=== PATIENT | female | born 1995 | race Caucasian/White ===

== ENCOUNTER 2017-12-29 20:52 | Emergency (ER) | payer BC ==
--- NOTE | 2017-12-29 21:40 | EDPHY ---
H & P Time Seen by Provider: 12/29/17 21:16 HPI/ROS: CHIEF COMPLAINT: Dysuria, hematuria HISTORY OF PRESENT ILLNESS: Patient is a 22-year-old female presents emergency department with dysuria and hematuria. Her symptoms started at 5:30 p.m.. She describes significant discomfort while urinating. She has no flank pain. No fevers or chills. No nausea or vomiting. No abdominal pain. Patient states that she is not sexually active with men and denies . Last period was 4 days ago. REVIEW OF SYSTEMS: 10 systems were reveiwed and are negative with the exception of the elements mentioned in the history of present illness. Past Medical/Surgical History: Mononucleosis, whooping cough Smoking Status: Never smoked Physical Exam: Vitals noted. Tachycardic 103 GENERAL: Well-appearing, in no acute distress, alert. HEENT: Eyes normal to inspection, normal pharynx, no signs of dehydration. NECK: Normal, supple. RESPIRATORY: Clear to auscultation bilaterally, no rales, rhonchi or wheezing. CVS: Regular rate and rhythm, no rubs, murmurs, or gallops. ABDOMEN: Soft, nontender, nondistended, no organomegaly. Benign BACK: Normal to inspection, no CVA tenderness. SKIN: Normal color, no rash, warm, dry. No pallor. EXTREMITIES: No pedal edema, no joint swelling. NEURO/PSYCH: Alert and oriented, normal mood and affect Constitutional: Initial Vital Signs Temperature (C) 36.7 C 12/29/17 20:57 Heart Rate 103 H 12/29/17 20:57 Respiratory Rate 16 12/29/17 20:57 Blood Pressure 115/64 12/29/17 20:57 O2 Sat (%) 97 12/29/17 20:57 O2 Delivery Mode Room Air Allergies/Adverse Reactions: No Known Allergies Allergy (Unverified 04/26/15 16:58) Home Medications: Medication Instructions Recorded Cephalexin [Keflex (*)] 500 mg PO QID 5 Days cap 12/29/17 Phenazopyridine HCl [Pyridium] 100 mg PO TID #6 tab 12/29/17 Medical Decision Making ED Course/Re-evaluation: In the emergency department I discussed possible etiologies with the patient. I answered all her questions. Urine studies were ordered. Patient's UA was positive. Patient was given Keflex and Pyridium in the emergency department. She is given prescriptions for both Keflex and Pyridium. She is given a take-home pack of hydrocodone for her discomfort. She is given warnings prior to leaving. She will return with worsening symptoms. Differential Diagnosis: My differential includes but is not limited to urinary tract infection, pyelonephritis, cystitis, bacteremia, sepsis, STD - Data Points Laboratory Results: 12/29/17 21:09 Urine Color YELLOW Urine Appearance HAZY Urine pH 6.0 (5.0-7.5) Ur Specific Almond 1.003 (1.002-1.030) Urine Protein 1+ H (NEGATIVE) Urine Ketones NEGATIVE (NEGATIVE) Urine Blood 3+ H (NEGATIVE) Urine Nitrate NEGATIVE (NEGATIVE) Urine Bilirubin NEGATIVE (NEGATIVE) Urine Urobilinogen NEGATIVE EU EU (0.2-1.0) Ur Leukocyte Esterase 2+ H (NEGATIVE) Urine RBC 5-10 /hpf H /hpf (0-3) Urine WBC 25-50 /hpf H /hpf (0-3) Ur Epithelial Cells TRACE /lpf /lpf (NONE-1+) Urine Bacteria 3+ /hpf H /hpf (NONE SEEN) Urine Mucus TRACE /lpf /lpf (NONE-1+) Urine Glucose NEGATIVE (NEGATIVE) Departure - Departure Disposition: Home, Routine, Self-Care Clinical Impression: Urinary tract infection Qualifiers: Urinary tract infection type: acute cystitis Hematuria presence: with hematuria Qualified Code(s): N30.01 - Acute cystitis with hematuria Condition: Good Instructions: Urinary Tract Infection in Women (ED) Referrals: Jessica Moses MD [[facility] [place] Primary Care Provider] - 3-4 days, if not improved Prescriptions: Cephalexin [Keflex (*)] 500 mg PO QID 5 Days cap Phenazopyridine HCl [Pyridium] 100 mg PO TID #6 tab
[2017-12-29] MEDS ORDERED: CEPHALEXIN 500MG PREPACK#4 BTL TAKEHOME ONE (21:51)
[2017-12-29] MEDS ORDERED: PHENAZOPYRIDINE HCL 200 MG TAB PO ONE (21:52)
[2017-12-29] MEDS ORDERED: HYDROCOD/APAP 5/325 PREPACK#6 BTL TAKEHOME ONE (21:53)
[2017-12-29 22:14] VITALS: BP 120/62
== END 2017-12-29 22:14 | disposition home or self-care (01) ==
DX: N30.01 Acute cystitis with hematuria (principal)